=== PATIENT | male | born 2000 | race Hispanic/Latino ===

== ENCOUNTER 2022-03-17 15:33 | Emergency (ER) | payer OTHER ==
[~2022-03-17] VITALS: Ht 170.2 cm; Wt 88.5 kg
[2022-03-17] MEDS ORDERED: OCTYL 2-CYANOACRYLATE 1 EACH TP ONE (16:29)
[2022-03-17 16:56] VITALS: BP 127/66
== END 2022-03-17 17:00 | disposition home or self-care (01) ==
LOC: EDH 15:33
DX: S01.81XA Laceration without foreign body of other part of head, initial encounter (principal); W22.8XXA Striking against or struck by other objects, initial encounter; Y93.89 Activity, other specified; Y92.89 Other specified places as the place of occurrence of the external cause; Y99.0 Civilian activity done for income or pay
CPT/HCPCS: 12011